=== PATIENT | male | born 1940 | race Caucasian/White ===

== ENCOUNTER → 2017-12-31 | Outpatient (CLI) | payer MEDICARE, BC ==
--- NOTE | 2017-12-31 16:14 | RAD ---
Ultrasound evaluation of the abdominal aorta. 12/31/2017 indication: Screening exam. COMPARISON STUDY: None. FINDINGS: Ultrasound evaluation of the abdominal aorta was performed as a screening exam for abdominal aortic aneurysm. There is an infrarenal abdominal aortic aneurysm measuring up to 3.6 cm in axial diameter. Proximal abdominal aorta measures up to 2.5 cm. Distal abdominal aorta measures up to 2.6 cm., Common iliac arteries are not well visualized on this exam. IMPRESSION: Mid abdominal aortic aneurysm measuring up to 3.[address] diameter[address] Consider CT angiography for further evaluation as there was a baseline for surveillance. Electronically signed by: Jewel Bowens MD (12/31/2017 4:11 PM) [id number]
== END | disposition home or self-care (01) ==
LOC: US 09:42
PROVIDERS: ATTEND Family Medicine
DX: Z13.89 Encounter for screening for other disorder (principal); I71.4 Abdominal aortic aneurysm, without rupture; F17.200 Nicotine dependence, unspecified, uncomplicated; R03.0 Elevated blood-pressure reading, without diagnosis of hypertension
CPT/HCPCS: 76770

== ENCOUNTER → 2018-01-22 | Outpatient (CLI) | payer MEDICARE, BC ==
[~2018-01-22] MED LIST: IOHEXOL 300 MG/ML 75 ML VIAL. IV ONE
--- NOTE | 2018-01-22 15:31 | RAD ---
CTA OF THE CHEST WITH AND WITHOUT CONTRAST Clinical indications: Abdominal aortic aneurysm seen by ultrasound. Evaluation for thoracic aortic aneurysm. Technique: Noncontrast axial localizer was performed. After IV infusion of 75 cc of Omnipaque 300, helical CT scanning of the chest was performed using the CT thoracic aortic protocol. Using a MIP algorithm, 3-D reconstructed aortogram was generated. Additional scanning extending through the abdominal aorta down to the iliac crests was performed. PQRS compliance Statement One or more of the following individualized dose reduction techniques were utilized for this study: 1. Automated exposure control 2. Adjustment of the mA and/or kV according to patient size 3. Use of iterative reconstruction technique Comparison: Abdominal aortic ultrasound dated December 31, 2017. Findings: No focal aneurysmal dilatation or dissection of the thoracic aorta is seen. Greatest caliber of the ascending aorta is 3.9 cm. The heart size is normal and no pericardial effusion is seen. There is mild calcified atheromatous disease of the coronary arteries. Hypodense nodule of the right lobe of the thyroid gland is seen. No enlarged thoracic lymphadenopathy is seen. No pneumothorax or pleural effusion is seen. Small calcified granulomas of the right lung field are seen. There is a prominent calcified granuloma of the left lower lobe. No lung mass or lung consolidation is seen. The proximal bronchial tree is patent. No osteolytic process is seen. There is an aneurysm of the mid and distal abdominal aorta below the origin of the main renal arteries which measures 3.7 cm in AP dimension and 3.5 cm in transverse dimension. It measures 6.8 cm in length. No dissection or intimal flap is seen. Bilateral renal cysts are seen. No renal mass or hydronephrosis is evident. No enlarged abdominal lymphadenopathy is evident. The liver spleen and pancreas and gallbladder are unremarkable and no extra hepatic biliary ductal dilatation is seen IMPRESSION: No aneurysm or dissection of the thoracic aorta is seen. Mid to distal abdominal aortic aneurysm measuring up to 3.7 cm in greatest AP or transverse dimension. Right thyroid nodule. Recommend thyroid sonography for further evaluation. Electronically signed by: Barrington Cline MD (01/22/2018 3:27 PM) [facility]
== END | disposition home or self-care (01) ==
LOC: CT 11:14
PROVIDERS: ATTEND Physician Assistant
DX: I71.4 Abdominal aortic aneurysm, without rupture (principal); E04.1 Nontoxic single thyroid nodule; J84.10 Pulmonary fibrosis, unspecified
CPT/HCPCS: 71275; Q9967

== ENCOUNTER → 2018-08-12 | Outpatient (CLI) | payer MEDICARE, BC ==
--- NOTE | 2018-08-12 11:40 | RAD ---
MR#: [id number] Date of Study: 08/12/2018 Ordering Physician: JAVIER ANN, Referring Physician: JAVIER ANN, Tech: Simin Solomon RVT, [facility] APPROVED REPORT Patient Location: OUT-PATIENT Indications AAA Grayscale images of the abdominal aorta demonstrate a mid to distal abdominal aortic aneurysm measuri ng approximately 3.6 cm in transverse dimension. The proximal and distal segments of aorta do not rev eal any obvious evidence of aneurysm. The aortic bifurcation does not have any obvious evidence of di lation. Duplex Results A/PTransverseLongitudinal Proximal Aorta 2.6cm2.7cm Mid Aorta 3.4cm3.6cm Distal Aorta 1.9cm2.4cm Doppler VelocityWaveform Proximal Aorta 99.4 cm/sec Aorta Mid. 58.5 cm/sec Distal Aorta 42.8 cm/sec Critical Notification Critical Value: No <Conclusion> No significant changes to the mid to distal abdominal aortic aneurysm measuring approximately 3.6 cm. Stable compared to December 2017. Signed by : Javier Ann, Electronically Approved : 08/12/2018 11:39:30
== END | disposition home or self-care (01) ==
LOC: US 09:33
PROVIDERS: ATTEND Internal Medicine Cardiovascular Disease
DX: I71.4 Abdominal aortic aneurysm, without rupture (principal)
CPT/HCPCS: 76770

== ENCOUNTER → 2019-03-18 | Outpatient (CLI) | payer MEDICARE, BC ==
[~2019-03-18] MED LIST changes: -IOHEXOL 300 MG/ML 75 ML VIAL. IV ONE; +IOHEXOL 350 MG/ML 100 ML VIAL. IV ONE
[2019-03-18 09:03] LABS: GFR 72.5
--- NOTE | 2019-03-18 10:20 | RAD ---
MR#: [id number] Date of Study: 03/18/2019 Ordering Physician: JAVIER ANN, Referring Physician: JAVIER ANN, Nelson: Rosanna Neumann RDMS RVT APPROVED REPORT Patient Location: OUT-PATIENT Laterality:Bilateral Indications AAA Risk Factors Hypertension: Smoking Grayscale images of the bilateral internal carotid arteries demonstrate mild diffuse irregularities. No focal high-grade obstruction is noted Spectral waveforms, color Doppler and velocities of the bilateral internal carotid artery are grossly within normal limits overall suggestive of 0 to less than 50% stenosis based on velocity criteria. B ilateral external carotid arteries are within normal limits. Bilateral common carotid artery velociti es are within normal limits. Bilateral vertebral velocities are antegrade and within normal limits. Doppler Spectral Velocity Analysis Right Left pCCA 50/14 cm/spCCA 74/17 cm/s mCCA 53/9 cm/smCCA 57/17 cm/s dCCA 64/15 cm/sdCCA 40/13 cm/s ECA 97/ cm/sECA pICA 40/15 cm/spICA 33/13 cm/s Homa 47/22 cm/smICA 57/17 cm/s dICA 71/28 cm/sdICA 77/33 cm/s ICA/CCA 1.11ICA/CCA 1.04 Critical Notification Critical Value: No <Conclusion> 1. No significant carotid occlusive disease bilaterally. Signed by : Javier Ann, Electronically Approved : 03/18/2019 10:20:05
--- NOTE | 2019-03-18 18:42 | RAD ---
Examination: CT ANGIOGRAPHY CHEST ABDOMEN History: Follow-up of abdominal aortic aneurysm Comparison/Correlation: 01/22/2018 CTA of the chest Findings: Axial images of the chest and abdomen were obtained following IV contrast according to arteriography protocol. Sagittal and coronal reformatted images were provided. 3-D images were not provided. Maximum intensity projection images were not provided. Nodular involvement of the right thyroid lobe is unchanged. No enlarged thoracic lymph nodes. No suspicious infiltrates. No pleural or pericardial effusion. No suspicious pulmonary nodule or mass. Mild atheromatous involvement of the thoracic aorta is present. No evidence of thoracic aortic aneurysm. Bovine arch is noted. Great vessels of the aortic arch are unremarkable. Celiac and superior mesenteric arteries are unremarkable. Inferior mesenteric artery is unremarkable. No significant stenosis. Right main renal artery is unremarkable. There are 3 left renal arteries. Infrarenal abdominal aortic aneurysm is present measuring up to 3.9 cm anteroposterior by 3.7 cm transverse aneurysm length is approximately 6.4 cm. It extends to just above the level of the atheromatous involvement and thrombus of the anterior aspect of the aneurysm is present. Diffuse atheromatous involvement of the abdominal aorta distally in the common iliac arteries noted. Moderate quantity of stool in the colon is noted. Appendix is partially visualized and unremarkable. Liver, spleen, and pancreas are unremarkable. Bilateral renal cysts are present. The gallbladder fossa is unremarkable. Degenerative space narrowing of the lumbar spine especially at L2-3 and L3-4 through S1 noted. No ascites involving the abdomen. Impression: No significant change in abdominal aortic aneurysm size or morphology considering differences in measurement technique. Mild increase in thrombus involving the anterior aspect of the infrarenal abdominal aortic aneurysm is noted in the interval. No suspicious new findings involving the thorax or abdomen in the interval. PQRS Compliance Statement: One or more of the following individualized dose reduction techniques were utilized for this examination: 1. Automated exposure control 2. Adjustment of the mA and/or kV according to patient size 3. Use of iterative reconstruction technique Electronically signed by: Lester Raymond MD (03/18/2019 6:38 PM) [facility]
== END | disposition home or self-care (01) ==
LOC: CT 07:53
PROVIDERS: ATTEND Internal Medicine Cardiovascular Disease
DX: I71.4 Abdominal aortic aneurysm, without rupture (principal); I10 Essential (primary) hypertension; F17.200 Nicotine dependence, unspecified, uncomplicated
CPT/HCPCS: 36415; 71275; 74175; 82565; 93880; Q9967

== ENCOUNTER → 2020-04-26 | Outpatient (CLI) | payer MEDICARE, BC ==
--- NOTE | 2020-04-26 11:48 | RAD ---
EXAM: Abdominal aortic sonogram. HISTORY: Aneurysm. TECHNIQUE: Sonographic imaging of the abdominal aorta was performed. COMPARISON: 08/12/2018. FINDINGS: The proximal abdominal aorta measures 3.1 cm in caliber. The mid abdominal aorta measures 2 .3 cm in caliber. The distal abdominal aorta measures 3.9 cm in caliber. The common iliac arteries me asure 1.5 cm on the right and 1.4 cm on the left. The inferior vena cava is patent. IMPRESSION: 3.9 cm distal abdominal aortic aneurysm, increased compared to a prior measurement of 3.6 cm. Electronically signed by: Judy Lutz MD (04/26/2020 11:45 AM) [id number]
== END ==
LOC: US 10:45
PROVIDERS: ATTEND Internal Medicine Cardiovascular Disease
DX: I71.4 Abdominal aortic aneurysm, without rupture (principal)
CPT/HCPCS: 93978

== ENCOUNTER → 2021-04-19 | Outpatient (CLI) | payer MEDICARE, BC ==
[2021-04-19 11:06] LABS: CREATININE 0.9 mg/dL (0.7-1.3); GFR 81.4
--- NOTE | 2021-04-19 12:57 | RAD ---
EXAM: CT angiography of the abdomen without and with intravenous contrast. HISTORY: Aortic aneurysm. TECHNIQUE: Computed tomographic images of the abdomen were obtained prior to and following the admini stration of intravenous contrast according to angiography protocol. Multiplanar reformatting was perf ormed and three dimensional maximum intensity projection images were obtained. *One or more of the following individualized dose reduction techniques were utilized for this examina tion: 1. Automated exposure control. 2. Adjustment of the mA and/or kV according to patient size. 3. Use of iterative reconstruction technique. COMPARISON: 03/18/2019. FINDINGS: Evaluation of the lower thorax demonstrates mild medial right lower lobe bronchial wall thi ckening, likely due to sequela of bronchitis. There is a calcified granuloma within the left lower lo be. There is minimal posterior dependent and basilar atelectasis. The heart is normal in size. No suspicious hepatic lesion is seen. There is a tiny incidental phrygian cap within the gallbladder. The pancreas is unremarkable. There are few splenic granulomas. The adrenal glands are unremarkable. The stomach is unremarkable. There is nonspecific bilateral perinephric stranding. There are simple appearing cysts within both ki dneys, measuring 1.7 cm within the right lower pole, 2.5 cm within the anterior left mid zone and 10 mm within the left lower pole. There are few additional hypodense lesions within both kidneys which a re too small to characterize, likely burgeoning cortical cysts. There is no hydronephrosis. There is no appendicitis. There is no bowel obstruction. There is mild rectal wall thickening likely due to relative under distention or the sequela prior inflammation. There is no surrounding stranding to suggest acute proctitis. The prostate is mildly enlarged. The bladder is distended. There is an infrarenal abdominal aortic aneurysm measuring 4.2 cm in caliber. There is partially calc ified atherosclerotic plaque and mural thrombus throughout the abdominal aorta. There is partially ca lcified atherosclerotic plaque at the origin of the superior mesenteric artery, with less than 50 per cent stenosis. There are 2 incidental accessory left renal arteries. There is atherosclerotic plaque involving the carotid bifurcation, with less than 50 percent stenosis. There is no lymphadenopathy. There are degenerative changes throughout the spine. There is no acute o sseous finding. There is central canal stenosis primarily at L2-L3 and L3-L4. IMPRESSION: 1. Interval increase in an infrarenal abdominal aortic aneurysm measuring 4.2 cm in caliber, compared to a prior measurement of 3.9 cm. There is aortic atherosclerosis and asymmetric mural thrombus thro ughout the abdominal aorta. No dissection is seen. 2. Small simple appearing renal cysts. Follow-up is not routinely performed for simple cysts. 3. Mild prostatomegaly. 4. Mild medial right lower lobe bronchial wall thickening, likely due to sequela of bronchitis. Electronically signed by: Judy Lutz MD (04/19/2021 12:54 PM) [id number]
== END ==
LOC: CT 10:28
PROVIDERS: ATTEND Internal Medicine Cardiovascular Disease
DX: I71.4 Abdominal aortic aneurysm, without rupture (principal); N40.0 Benign prostatic hyperplasia without lower urinary tract symptoms; J84.10 Pulmonary fibrosis, unspecified; J98.11 Atelectasis; N32.89 Other specified disorders of bladder; I21.9 Acute myocardial infarction, unspecified; I65.29 Occlusion and stenosis of unspecified carotid artery; I70.0 Atherosclerosis of aorta; M47.817 Spondylosis without myelopathy or radiculopathy, lumbosacral region; M48.061 Spinal stenosis, lumbar region without neurogenic claudication; Z98.890 Other specified postprocedural states
CPT/HCPCS: 36415; 74175; 82565; 84520; Q9967